=== PATIENT | female | born 1995 | race Caucasian/White ===

== ENCOUNTER 2018-08-30 22:17 | Emergency (ER) | payer MEDICAID ==
[~2018-08-30] VITALS: Ht 162.6 cm; Wt 59.0 kg
[2018-08-30 22:23] VITALS: BP 114/76
[2018-08-30] MEDS ORDERED: ONDANSETRON ODT 4 MG ONE (23:17)
[2018-08-30] MEDS ORDERED: ONDANSETRON ODT 4 MG PO ONE (23:30)
--- NOTE | 2018-08-30 23:39 | NUR ---
PT TAKEN TO US WITH TECH AND FRIEND.
[2018-08-30 23:40] LABS: BASOPHILS # (AUTO) 0.08 x10^3/uL (0-0.1); BASOPHILS % (AUTO) 1 % (0-1); EOSINOPHILS # (AUTO) 0.17 x10^3/uL (0-0.4); EOSINOPHILS % (AUTO) 2 % (1-7); LYMPHOCYTES # (AUTO) 2.27 x10^3/uL (1-3.4); LYMPHOCYTES % (AUTO) 27 % (22-44); MD NO; MEAN CORPUSCULAR HEMOGLOBIN 28.3 pg (27.0-34.8); MEAN CORPUSCULAR HGB CONC 33.3 g/dL (32.4-35.8); MEAN CORPUSCULAR VOLUME 84.8 fL (80-100); MONOCYTES # (AUTO) 0.87 x10^3/uL (0.2-0.8); MONOCYTES % (AUTO) 10 % (2-9); NEUTROPHILS # (AUTO) 4.99 x10^3/uL (1.8-6.8); NEUTROPHILS % (AUTO) 60 % (42-75); PLATELET COUNT 257 x10^3/uL (130-400); RED BLOOD COUNT 4.71 x10^6/uL (3.82-5.3); RED CELL DISTRIBUTION WIDTH 13.5 % (9.6-15.2)
[2018-08-30 23:49] LABS: ALANINE AMINOTRANSFERASE 20 U/L (12-78); ALBUMIN 3.5 g/dL (3.4-5.0); ANION GAP 7 mmol/L (5-15); CALCIUM 8.6 mg/dL (8.5-10.1); CHLORIDE 105 mmol/L (98-107); CREATININE 0.67 mg/dL (0.55-1.02)
[2018-08-30 23:50] LABS: MICROSCOPIC NOT IND
[2018-08-30 23:56] LABS: CULTURE INDICATED? NO
[2018-08-31 00:06] LABS: ALKALINE PHOSPHATASE 93 U/L (45-117); BILIRUBIN,TOTAL 0.2 mg/dL (0.2-1.0); TOTAL PROTEIN 7.3 g/dL (6.4-8.2)
== END 2018-08-31 01:09 | disposition home or self-care (01) ==
LOC: ED 08-31 00:52
DX: O21.9 Vomiting of pregnancy, unspecified (principal); Z3A.01 Less than 8 weeks gestation of pregnancy
CPT/HCPCS: 36415; 71045; 76801; 80053; 81003; 83690; 84702; 85025; 86901; 93005; 99284; Q0162

== ENCOUNTER 2018-09-02 20:15 | Emergency (ER) | payer MEDICAID ==
[~2018-09-02] VITALS: Ht 162.6 cm; Wt 58.2 kg
--- NOTE | 2018-09-02 20:40 | NUR ---
PT TO US VIA [facility]. TO BE ASSESSED UPON RETURN.
[2018-09-02 21:15] LABS: BASOPHILS # (AUTO) 0.03 x10^3/uL (0-0.1); BASOPHILS % (AUTO) 0 % (0-1); EOSINOPHILS % (AUTO) 1 % (1-7); LYMPHOCYTES # (AUTO) 2.17 x10^3/uL (1-3.4); LYMPHOCYTES % (AUTO) 25 % (22-44); MD NO; MEAN CORPUSCULAR HEMOGLOBIN 28.3 pg (27.0-34.8); MEAN CORPUSCULAR HGB CONC 33.4 g/dL (32.4-35.8); MEAN CORPUSCULAR VOLUME 84.8 fL (80-100); MEAN PLATELET VOLUME 8.6 fL (7.4-10.4); MONOCYTES # (AUTO) 0.87 x10^3/uL (0.2-0.8); MONOCYTES % (AUTO) 10 % (2-9); NEUTROPHILS # (AUTO) 5.46 x10^3/uL (1.8-6.8); NEUTROPHILS % (AUTO) 63 % (42-75); PLATELET COUNT 256 x10^3/uL (130-400); RED BLOOD COUNT 4.54 x10^6/uL (3.82-5.3); RED CELL DISTRIBUTION WIDTH 13.7 % (9.6-15.2)
--- NOTE | 2018-09-02 21:25 | NUR ---
PT BACK FROM [place]. STATES UNABLE TO PROVIDE UA AT THIS TIME. NO S/S OF ACUTE DISTRESS. VSS. CALL LIGHT IN REACH.
[2018-09-02 21:27] LABS: ALANINE AMINOTRANSFERASE 18 U/L (12-78); ALBUMIN 3.5 g/dL (3.4-5.0); ANION GAP 6 mmol/L (5-15); CHLORIDE 106 mmol/L (98-107); CREATININE 0.64 mg/dL (0.55-1.02)
[2018-09-02 21:44] LABS: ALKALINE PHOSPHATASE 75 U/L (45-117); BILIRUBIN,TOTAL 0.4 mg/dL (0.2-1.0); TOTAL PROTEIN 6.9 g/dL (6.4-8.2)
[2018-09-02 22:05] VITALS: BP 101/61
--- NOTE | 2018-09-02 22:05 | NUR ---
UA COLLECTED AND SENT TO LAB. NO FURTHER NEEDS EXPRESSED. CALL LIGHT IN REACH.
[2018-09-02 22:29] LABS: MICROSCOPIC AUTO
[2018-09-02 22:39] LABS: CULTURE INDICATED? NO
== END 2018-09-02 23:03 | disposition home or self-care (01) ==
LOC: ED 20:38
DX: O46.91 Antepartum hemorrhage, unspecified, first trimester (principal); Z3A.01 Less than 8 weeks gestation of pregnancy
CPT/HCPCS: 36415; 76801; 80053; 81001; 84702; 85025; 99284

== ENCOUNTER 2018-11-21 16:06 | Observation (INO) | payer MEDICAID ==
[~2018-11-21] VITALS: Ht 165.1 cm; Wt 61.0 kg
[2018-11-21] MEDS ORDERED: MISOPROSTOL 200 MCG TABLET PO ONE (17:00)
[2018-11-21] MEDS ORDERED: MISOPROSTOL 200 MCG TABLET PR ONE (17:00)
[2018-11-21 17:04] LABS: BASOPHILS # (AUTO) 0.02 x10^3/uL (0-0.1); BASOPHILS % (AUTO) 0 % (0-1); EOSINOPHILS # (AUTO) 0.06 x10^3/uL (0-0.4); EOSINOPHILS % (AUTO) 0 % (1-7); LYMPHOCYTES # (AUTO) 1.14 x10^3/uL (1-3.4); LYMPHOCYTES % (AUTO) 8 % (22-44); MD NO; MEAN CORPUSCULAR HEMOGLOBIN 29.2 pg (27.0-34.8); MEAN CORPUSCULAR HGB CONC 33.8 g/dL (32.4-35.8); MEAN CORPUSCULAR VOLUME 86.5 fL (80-100); MEAN PLATELET VOLUME 8.4 fL (7.4-10.4); MONOCYTES # (AUTO) 1.14 x10^3/uL (0.2-0.8); MONOCYTES % (AUTO) 8 % (2-9); NEUTROPHILS # (AUTO) 11.28 x10^3/uL (1.8-6.8); NEUTROPHILS % (AUTO) 83 % (42-75); PLATELET COUNT 161 x10^3/uL (130-400); RED BLOOD COUNT 3.66 x10^6/uL (3.82-5.3); RED CELL DISTRIBUTION WIDTH 15.1 % (9.6-15.2)
--- NOTE | 2018-11-21 17:04 | NUR ---
IV PLACED, LABS DRAWN WITH START. MED REQUEST SENT TO PHARMACY. 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 EKG COMPLETED ON ARRIVAL TO ROOM. CALL LIGHT WITHIN REACH.
[2018-11-21 17:11] LABS: ALANINE AMINOTRANSFERASE 10 U/L (12-78); ANION GAP 8 mmol/L (5-15); CALCIUM 8.1 mg/dL (8.5-10.1); CHLORIDE 109 mmol/L (98-107); CREATININE 0.77 mg/dL (0.55-1.02)
[2018-11-21 17:27] LABS: ALKALINE PHOSPHATASE 55 U/L (45-117); BILIRUBIN,TOTAL 0.4 mg/dL (0.2-1.0); TOTAL PROTEIN 6.2 g/dL (6.4-8.2)
[2018-11-21] MEDS ORDERED: MORPHINE SULFATE 4 MG/ML, 1ML ONE ×2 (18:22→18:52)
[2018-11-21] MEDS: MORPHINE SULFATE 4 MG/ML, 1ML IVPush PRN ×2 (18:25→18:56)
[2018-11-21] MEDS ORDERED: ONDANSETRON 2MG/ML, 2ML IVPush ONE (18:30)
[2018-11-21 18:41] VITALS: BP 93/63
--- NOTE | 2018-11-21 18:45 | NUR ---
PT MEDICATED FOR 10/10 ABD/PELVIC PAIN. ASSIST ERP WITH PELVIC EXAM. LARGE CLOTS REMOVED BY ERP, WILL CONTINUE TO MONITOR. 1ST UNIT RBC INFUSING, CONTINUE CLOSE OBS. BP IMPROVED AT THIS TIME 93/63. CALL LIGHT WITHIN REACH.
--- NOTE | 2018-11-21 18:55 | NUR ---
PAIN NOW RATED 5/10. PT REMEDICATED PER ERP ORDER.
[2018-11-21 18:57] VITALS: BP 106/70
--- NOTE | 2018-11-21 19:43 | NUR ---
REPORT TO [facility].
[2018-11-21 19:44] VITALS: BP 107/74
[2018-11-21] MEDS ORDERED: MISOPROSTOL 200 MCG TABLET ONE (19:57)
[2018-11-21] MEDS ORDERED: OXYTOCIN 10 UNITS/ML, 1ML ONE (19:57)
[2018-11-21] MEDS ORDERED: METHYLERGONOVINE 0.2 MG/ML IM ONE (19:58)
[2018-11-21] MEDS ORDERED: SILVER NITRATE STICK TP ONE (19:58)
[2018-11-21] MEDS ORDERED: FENTANYL PF 100 MCG/2ML ONE ×2 (20:06→21:25)
[2018-11-21] MEDS ORDERED: SUCCINYLCHOLINE 20 MG/ML, 10ML ONE (20:16)
[2018-11-21] MEDS ORDERED: PROPOFOL 10 MG/ML, 20ML ONE (20:16)
[2018-11-21] MEDS ORDERED: PHENYLEPHRINE 10 MG/ML ONE (20:16)
[2018-11-21] MEDS ORDERED: VASOPRESSIN 20 UNIT/ML, 1ML ONE (20:51)
[2018-11-21] MEDS ORDERED: VASOPRESSIN 20 UNIT/ML, 1ML IV ONE (21:00)
[2018-11-21] MEDS ORDERED: MEPERIDINE/PF 25MG/ML,1ML ONE (21:24)
[2018-11-21] MEDS ORDERED: OXYcodone 5 MG/5 ML ORAL.SOL UDC ONE (21:24)
[2018-11-21] MEDS ORDERED: PROMETHAZINE 25 MG/ML, 1ML IV PRN (21:30)
[2018-11-21] MEDS ORDERED: MEPERIDINE/PF 25MG/0.5ML IVPush PRN (21:30)
[2018-11-21] MEDS: FENTANYL PF 100 MCG/2ML IV PRN ×2 (21:30→21:49)
[2018-11-21] MEDS ORDERED: HYDROmorphone 2 MG/ML, 1ML IVPush PRN (21:30)
[2018-11-21] MEDS ORDERED: OXYcodone 5 MG/5 ML ORAL.SOL UDC PO PRN (21:30)
[2018-11-21 21:44] LABS: BASOPHILS # (AUTO) 0.03 x10^3/uL (0-0.1); BASOPHILS % (AUTO) 0 % (0-1); EOSINOPHILS # (AUTO) 0.01 x10^3/uL (0-0.4); EOSINOPHILS % (AUTO) 0 % (1-7); LYMPHOCYTES # (AUTO) 1.22 x10^3/uL (1-3.4); LYMPHOCYTES % (AUTO) 9 % (22-44); MD NO; MEAN CORPUSCULAR HEMOGLOBIN 28.4 pg (27.0-34.8); MEAN CORPUSCULAR HGB CONC 32.9 g/dL (32.4-35.8); MEAN CORPUSCULAR VOLUME 86.2 fL (80-100); MONOCYTES # (AUTO) 1.04 x10^3/uL (0.2-0.8); MONOCYTES % (AUTO) 8 % (2-9); NEUTROPHILS # (AUTO) 11.64 x10^3/uL (1.8-6.8); NEUTROPHILS % (AUTO) 84 % (42-75); PLATELET COUNT 114 x10^3/uL (130-400); RED BLOOD COUNT 4.04 x10^6/uL (3.82-5.3); RED CELL DISTRIBUTION WIDTH 15.3 % (9.6-15.2)
[2018-11-21] MEDS ORDERED: IBUPROFEN 600 MG TABLET PO PRN (22:30)
[2018-11-21] MEDS ORDERED: HYDROcodone/APAP 7.5-325MG/15ML UDC PO PRN (22:30)
[2018-11-21] MEDS ORDERED: ONDANSETRON 2MG/ML, 2ML IV PRN (22:30)
[2018-11-21] MEDS: METHYLERGONOVINE 0.2MG TABLET PO SCH (23:50)
[2018-11-21] MEDS: LACTATED RINGERS 1,000 ML IV SCH (23:50)
[2018-11-22 00:03] VITALS: BP 100/63
[2018-11-22 03:38] LABS: BASOPHILS # (AUTO) 0.03 x10^3/uL (0-0.1); BASOPHILS % (AUTO) 0 % (0-1); EOSINOPHILS # (AUTO) 0.07 x10^3/uL (0-0.4); EOSINOPHILS % (AUTO) 1 % (1-7); LYMPHOCYTES # (AUTO) 1.84 x10^3/uL (1-3.4); LYMPHOCYTES % (AUTO) 20 % (22-44); MD NO; MEAN CORPUSCULAR HEMOGLOBIN 28.7 pg (27.0-34.8); MEAN CORPUSCULAR HGB CONC 33.4 g/dL (32.4-35.8); MEAN PLATELET VOLUME 7.7 fL (7.4-10.4); MONOCYTES # (AUTO) 0.84 x10^3/uL (0.2-0.8); MONOCYTES % (AUTO) 9 % (2-9); NEUTROPHILS # (AUTO) 6.66 x10^3/uL (1.8-6.8); NEUTROPHILS % (AUTO) 71 % (42-75); PLATELET COUNT 110 x10^3/uL (130-400); RED BLOOD COUNT 3.23 x10^6/uL (3.82-5.3); RED CELL DISTRIBUTION WIDTH 15.4 % (9.6-15.2)
[2018-11-22 04:55] VITALS: BP 92/57
[2018-11-22] MEDS: METHYLERGONOVINE 0.2MG TABLET PO SCH ×2 (05:57→11:57)
[2018-11-22] MEDS ORDERED: METH0.2T45 PO (06:28)
[2018-11-22] MEDS ORDERED: DOXY100C15 PO (06:30)
[2018-11-22] MEDS ORDERED: IBUP200T49 PO (06:31)
[2018-11-22 07:33] VITALS: BP 95/57
[2018-11-22] MEDS: LACTATED RINGERS 1,000 ML IV SCH (08:45)
[2018-11-22 13:20] VITALS: BP 106/57
[2018-11-22 15:33] VITALS: BP 110/72
== END 2018-11-22 15:50 | disposition home or self-care (01) ==
LOC: ED 18:02 → EDIP 19:45 → 4NOR 22:16 → DCLOUNGE 11-22 15:37
PROVIDERS: ADMIT Obstetrics & Gynecology; ATTEND Obstetrics & Gynecology
DX: O46.92 Antepartum hemorrhage, unspecified, second trimester (principal); D62 Acute posthemorrhagic anemia; E86.1 Hypovolemia; N85.2 Hypertrophy of uterus; O03.31 Shock following incomplete spontaneous abortion; Z3A.18 18 weeks gestation of pregnancy; Z87.891 Personal history of nicotine dependence
CPT/HCPCS: 36415; 59812; 76801; 80053; 84702; 85025; 86850; 86900; 86923; 88305; 93005; 96374; 96376; 99284; G0378; J0330; J2175; J2210; J2370; J2704; J3010; J7120; P9016; 96375; J2590

== ENCOUNTER 2019-06-30 22:11 | Emergency (ER) | payer MEDICAID ==
[~2019-06-30] VITALS: Ht 162.6 cm; Wt 58.0 kg
[~2019-06-30 22:11] MED LIST: DOXY100C15 PO; IBUP200T49 PO; METH0.2T45 PO; PREN1TAB10 PO
[2019-06-30 22:12] VITALS: BP 131/66
[2019-06-30 22:41] LABS: BASOPHILS # (AUTO) 0.04 x10^3/uL (0-0.1); BASOPHILS % (AUTO) 1 % (0-1); EOSINOPHILS # (AUTO) 0.22 x10^3/uL (0-0.4); EOSINOPHILS % (AUTO) 3 % (1-7); LYMPHOCYTES # (AUTO) 2.74 x10^3/uL (1-3.4); LYMPHOCYTES % (AUTO) 37 % (22-44); MD NO; MEAN CORPUSCULAR HGB CONC 31.9 g/dL (32.4-35.8); MEAN CORPUSCULAR VOLUME 84.6 fL (80-100); MEAN PLATELET VOLUME 9.5 fL (7.4-10.4); MONOCYTES # (AUTO) 0.86 x10^3/uL (0.2-0.8); MONOCYTES % (AUTO) 12 % (2-9); NEUTROPHILS # (AUTO) 3.66 x10^3/uL (1.8-6.8); NEUTROPHILS % (AUTO) 49 % (42-75); PLATELET COUNT 232 x10^3/uL (130-400); RED BLOOD COUNT 4.71 x10^6/uL (3.82-5.3); RED CELL DISTRIBUTION WIDTH 15.6 % (9.6-15.2)
[2019-06-30 22:52] LABS: ALANINE AMINOTRANSFERASE 26 U/L (12-78); ALBUMIN 3.6 g/dL (3.4-5.0); ANION GAP 8 mmol/L (5-15); CALCIUM 8.4 mg/dL (8.5-10.1); CHLORIDE 107 mmol/L (98-107)
[2019-06-30 22:57] LABS: ALKALINE PHOSPHATASE 82 U/L (45-117); BILIRUBIN,TOTAL 0.4 mg/dL (0.2-1.0); TOTAL PROTEIN 7.2 g/dL (6.4-8.2)
[2019-06-30 23:21] LABS: MICROSCOPIC NOT IND
[2019-06-30 23:23] LABS: CULTURE INDICATED? NO
== END 2019-07-01 00:13 | disposition home or self-care (01) ==
LOC: ED 23:42
DX: O20.0 Threatened abortion (principal); M54.5 Low back pain; R10.2 Pelvic and perineal pain; Z3A.00 Weeks of gestation of pregnancy not specified
CPT/HCPCS: 36415; 76856; 80053; 81003; 84702; 85025; 86901; 99284

== ENCOUNTER 2019-09-01 20:18 | Emergency (ER) | payer MEDICAID ==
[~2019-09-01] VITALS: Ht 162.6 cm; Wt 56.8 kg
[2019-09-01] MEDS ORDERED: SODIUM CHLORIDE 0.9% 1,000ML IVBOLUS ONE (21:30)
--- NOTE | 2019-09-01 21:36 | NUR ---
Received instructions from provider that patient should be placed on monitor. RN asked construction equipment technician to place patient on monitor while RN was in with another patient. RN returned to bedside shortly after, patient remains alert, oriented. Reports coming in for chest pain that was 8/10 but reports no chest pain at the moment. RN confirmed had been informed of plan of care for imaging, labs and intravenous fluids. Patient agreeable to intravenous acces (pIV) started pIV per protocol, and labs drawn and sent with nondestructive tester. Patient remains alert, oriented able answer questions clearly and concisely and reports no concerns at this moment. Awaiting laboratory results and chest xray results.
[2019-09-01 21:40] LABS: BASOPHILS # (AUTO) 0.03 x10^3/uL (0-0.1); BASOPHILS % (AUTO) 0 % (0-1); EOSINOPHILS # (AUTO) 0.22 x10^3/uL (0-0.4); EOSINOPHILS % (AUTO) 3 % (1-7); LYMPHOCYTES # (AUTO) 1.39 x10^3/uL (1-3.4); LYMPHOCYTES % (AUTO) 20 % (22-44); MD NO; MEAN CORPUSCULAR HEMOGLOBIN 27.3 pg (27.0-34.8); MEAN CORPUSCULAR VOLUME 82.8 fL (80-100); MEAN PLATELET VOLUME 8.8 fL (7.4-10.4); MONOCYTES # (AUTO) 0.61 x10^3/uL (0.2-0.8); MONOCYTES % (AUTO) 9 % (2-9); NEUTROPHILS % (AUTO) 67 % (42-75); PLATELET COUNT 212 x10^3/uL (130-400); RED BLOOD COUNT 4.41 x10^6/uL (3.82-5.3); RED CELL DISTRIBUTION WIDTH 14.9 % (9.6-15.2)
[2019-09-01 21:52] LABS: ALBUMIN 3.1 g/dL (3.4-5.0); ANION GAP 6 mmol/L (5-15); CALCIUM 8.4 mg/dL (8.5-10.1); CHLORIDE 108 mmol/L (98-107)
[2019-09-01 22:11] LABS: CREATININE 0.64 mg/dL (0.55-1.02); TROPONIN I < 0.015 ng/mL (0.000-0.045)
[2019-09-01 22:28] VITALS: BP 104/51
== END 2019-09-01 22:43 | disposition home or self-care (01) ==
LOC: ED 22:34
DX: O99.412 Diseases of the circulatory system complicating pregnancy, second trimester (principal); R07.89 Other chest pain; R00.0 Tachycardia, unspecified; Z3A.16 16 weeks gestation of pregnancy
CPT/HCPCS: 36415; 71045; 80048; 82040; 84484; 84702; 85025; 85379; 93005; 96360; 99284; J7030

== ENCOUNTER 2020-02-03 01:56 | Observation (INO) | payer MEDICAID ==
[~2020-02-03] VITALS: Ht 162.6 cm; Wt 64.0 kg
[2020-02-03] MEDS ORDERED: LACTATED RINGERS 500 ML IVBOLUS ONE (03:45)
[2020-02-03] MEDS ORDERED: MEPERIDINE/PF 100 MG/ML ONE (03:53)
[2020-02-03] MEDS ORDERED: PROMETHAZINE 25 MG/ML, 1ML ONE (03:54)
[2020-02-03] MEDS ORDERED: MEPERIDINE/PF 50 MG/ML IM PRN (04:00)
[2020-02-03] MEDS ORDERED: PROMETHAZINE 25 MG/ML, 1ML IM PRN (04:00)
[2020-02-03 04:54] LABS: AMPHETAMINE SCREEN, URINE Negative (Negative); BARBITURATE SCREEN, URINE Negative (Negative); BENZODIAZEPINE SCREEN, URINE Negative (Negative); CANNABINOID SCREEN, URINE Negative (Negative); COCAINE SCREEN, URINE Negative (Negative); METHADONE SCREEN, URINE Negative (Negative); OPIATE SCREEN, URINE Negative (Negative)
== END 2020-02-03 06:04 | disposition home or self-care (01) ==
LOC: LDOP 01:56 → LDIP 03:30
PROVIDERS: ADMIT Obstetrics & Gynecology; ATTEND Obstetrics & Gynecology
DX: O62.9 Abnormality of forces of labor, unspecified (principal); Z3A.38 38 weeks gestation of pregnancy; Z88.0 Allergy status to penicillin; Z79.899 Other long term (current) drug therapy
CPT/HCPCS: 59025; 80307; 96360; 96372; G0378; J2175; J2550; J7120

== ENCOUNTER 2020-10-17 16:43 | Emergency (ER) | payer MEDICAID ==
[~2020-10-17] VITALS: Ht 162.6 cm; Wt 57.7 kg
--- NOTE | 2020-10-17 16:59 | NUR ---
PHOTOCOPY OPERATOR: ERP DR. TOURE PROVIDED W/ PT CHART
[2020-10-17] MEDS ORDERED: SODIUM CHLORIDE FLUSH 10ML SYR IVF ONE (17:30)
[2020-10-17] MEDS ORDERED: SODIUM CHLORIDE 0.9% 1,000ML IVBOLUS ONE (17:30)
[2020-10-17 17:34] LABS: BASOPHILS % (AUTO) 0 % (0-1); EOSINOPHILS % (AUTO) 2 % (1-7); LYMPHOCYTES % (AUTO) 22 % (22-44); MEAN CORPUSCULAR HEMOGLOBIN 28.5 pg (27.0-34.8); MEAN CORPUSCULAR HGB CONC 33.7 g/dL (32.4-35.8); MEAN PLATELET VOLUME 9.2 fL (7.4-10.4); MONOCYTES % (AUTO) 9 % (2-9); NEUTROPHILS % (AUTO) 67 % (42-75); PLATELET COUNT 203 x10^3/uL (130-400); RED BLOOD COUNT 4.51 x10^6/uL (3.82-5.3); RED CELL DISTRIBUTION WIDTH 13.5 % (9.6-15.2)
[2020-10-17 17:35] LABS: MD NO
[2020-10-17 17:47] LABS: ALANINE AMINOTRANSFERASE 29 U/L (12-78); ALBUMIN 3.2 g/dL (3.4-5.0); ANION GAP 5 mmol/L (5-15); CALCIUM 7.8 mg/dL (8.5-10.1); CHLORIDE 109 mmol/L (98-107); CREATININE 0.51 mg/dL (0.55-1.02)
[2020-10-17 18:04] LABS: ALKALINE PHOSPHATASE 55 U/L (45-117); BILIRUBIN,TOTAL 0.2 mg/dL (0.2-1.0); TOTAL PROTEIN 6.7 g/dL (6.4-8.2)
--- NOTE | 2020-10-17 18:57 | NUR ---
BEDSIDE REPORT RECEIVED FROM KEVIN ABURTO
--- NOTE | 2020-10-17 18:59 | NUR ---
PT UPRIGHT ON GURNEY, RESTING COMFORTABLY, NADN, VSS. SIGNIFICANT OTHER AT BEDSIDE. PT DENIES ANY NEEDS AT THIS TIME. CALL LIGHT AND PERSONAL BELONGINGS WITHIN REACH.
--- NOTE | 2020-10-17 19:30 | NUR ---
PT TO US
[2020-10-17 20:30] VITALS: BP 120/72
--- NOTE | 2020-10-17 20:31 | NUR ---
Patient given discharge instructions and they have confirmed that they understand the instructions. Patient ambulatory with steady gait.
== END 2020-10-17 20:32 | disposition home or self-care (01) ==
LOC: ED 20:30
DX: O21.9 Vomiting of pregnancy, unspecified (principal); R41.82 Altered mental status, unspecified; R94.31 Abnormal electrocardiogram [ECG] [EKG]; Z3A.01 Less than 8 weeks gestation of pregnancy
CPT/HCPCS: 76801; 80053; 82962; 83690; 84702; 85025; 93005; 96360; 96361; 99285; J7030